=== PATIENT | male | born 1945 ===

== ENCOUNTER 2017-11-07 07:26 | Outpatient (CLI) | payer OTHER | END 2017-11-07 07:33 | disposition home or self-care (01) | LOC: NUCLEAR 07:26 | DX: I20.0 Unstable angina (principal); I25.10 Atherosclerotic heart disease of native coronary artery without angina pectoris; E78.2 Mixed hyperlipidemia; I11.9 Hypertensive heart disease without heart failure | CPT/HCPCS: 78452; 93017; 93306; A9500; J0153 ==

== ENCOUNTER 2018-05-13 08:08 | Outpatient (CLI) | payer OTHER | END 2018-05-13 09:39 | disposition home or self-care (01) | LOC: NUCLEAR 08:08 | DX: I50.32 Chronic diastolic (congestive) heart failure (principal); I25.10 Atherosclerotic heart disease of native coronary artery without angina pectoris ==